=== PATIENT | male | born 1965 | race African-American/Black ===

== ENCOUNTER 2025-04-19 10:41 | Emergency (ER) | payer MEDICARE, MEDICAID, SELFPAY ==
[2025-04-19 10:41] VITALS: BP 142/93; PULSE 75; RESP 14; TEMP 36.3; O2SAT 98; BMI 39.5
--- NOTE | 2025-04-19 10:58 | EDS_ITS ---
HPI History of Present Illness Chief Complaint: Ear Problem Informant: patient Narrative Narrative: 59-year-old male was using a cotton swab to clean cerumen out of his ears this morning, and the cotton from the swab remained in his left ear canal when he removed it. He denies any bleeding, pain, or sensation like he injured his eardrum. He states his hearing is normal he just has foreign body sensation. PFSH PFSH no medical history Allergy/AdvReac Type Severity Reaction Status Date / Time No Known Allergies Allergy Verified 04/19/25 10:42 ROS ROS ED Constitutional Constitutional ED: Denies chills or fever(s) Eyes Eyes: Denies change in vision ENT ENT ED: Reports other Details: left ear FB sensation, no bleeding ; Denies ear pain Gastrointestinal Gastrointestinal: Denies nausea or vomiting Musculoskeletal Musculoskeletal: Denies back pain or neck pain Integumentary Denies abscess or rash EXAM Physical Exam Const Vital Signs: 04/19/25 10:41 Temperature 97.3 F L Temperature Source Temporal Pulse Rate 75 Respiratory Rate 14 Blood Pressure 142/93 H Blood Pressure Mean 109 Pulse Ox 98 Oxygen Delivery Method Room Air Positive well nourished and well developed Constitutional Narrative: Well-appearing in no distress General Appearance ED: well developed and NAD HEENT Reports moist mucous membranes HEENT Narrative: Cotton foreign body completely occluding visualization of the tympanic membrane within the left EAC which is otherwise unremarkable. No blood. No discomfort with manipulation of the pinna or the tragus. Right TM is normal-appearing with some scar tissue. Normal right EAC. Eyes PERRL and EOMs intact bilaterally Resp normal respiratory effort Neuro oriented x3, CN's II-XII intact bilaterally and no sensory deficits noted Motor Exam: strength 5/5 throughout Psych mental status grossly normal Skin no rashes or lesions noted MDM MDM MDM Narrative Medical decision making narrative: See the procedure note, foreign body was removed in 1 piece, and afterwards everything looks clear and the TM is intact. Given appropriate discharge in structions reasons to return. Procedures Other Procedures Procedure(s): Foreign body removal left EAC/ear: Using alligator forceps and otoscope, able to grab the cotton and remove it in 1 piece. Tolerated well no complications. Visualized TM afterward which is intact and uninjured. Sustained no apparent injury to the wall of the external auditory canal before or during procedure. Discharge Plan Triage Chief Complaint: Ear Problem ED Provider: Juan Quinones Dx/Rx/DC Orders Clinical Impression: Acute foreign body of left ear canal Instructions: ED Foreign Body, Ear Canal (Removed) Referrals: Doctor,Your [Non-Staff] - As Needed Print Language: Romanian Disposition Disposition: Home, Self Care
[2025-04-19 11:21] VITALS: BP 154/85; PULSE 78; RESP 16; TEMP 36.6; O2SAT 100
== END 2025-04-19 11:24 | disposition home or self-care (01) ==
LOC: ED 11:21
PROVIDERS: Emergency Provider Emergency Medicine; Visit Provider Emergency Medicine
DX: T16.2XXA Foreign body in left ear, initial encounter (principal); X58.XXXA Exposure to other specified factors, initial encounter
CPT/HCPCS: 99282